=== PATIENT | female | born 1980 | race Caucasian/White ===

== ENCOUNTER 2016-05-03 07:21 | Day surgery (SDC) | payer OTHER ==
[2016-04-20 09:57] LABS: APPEARANCE,URINE SLIGHTLY-CLOUDY; BILIRUBIN,URINE NEGATIVE (NEGATIVE); GLUCOSE, URINE NEGATIVE (NEGATIVE); HEMATOCRIT 36.4 % (36.0-47.0); HEMOGLOBIN 11.4 g/dL (12.0-15.5); HGB HCT DIFFERENCE -2.2; KETONES,URINE NEGATIVE (NEGATIVE); LEUKOCYTE ESTERASE,URINE NEGATIVE (NEGATIVE); MEAN CORPUSCULAR HEMOGLOBIN 24.1 pg (27.0-33.4); MEAN CORPUSCULAR HGB CONC 31.5 g/dL (32.0-36.0); MEAN CORPUSCULAR VOLUME 77 fl (80-97); NITRITE,URINE NEGATIVE (NEGATIVE); PROTEIN,URINE NEGATIVE (NEGATIVE); RED BLOOD COUNT 4.75 10^6/uL (3.72-5.28); RED CELL DISTRIBUTION WIDTH 15.2 % (11.5-14.0); URINE SPECIFIC GRAVITY 1.024; UROBILINOGEN,URINE NEGATIVE mg/dL (<2.0); WHITE BLOOD COUNT 7.3 10^3/uL (4.0-10.5)
[2016-04-20 10:24] LABS: ANION GAP 11 (5-19); BLOOD UREA NITROGEN 12 mg/dL (7-20); CALCIUM 9.6 mg/dL (8.4-10.2); CARBON DIOXIDE 29 mmol/L (22-30); CHLORIDE 101 mmol/L (98-107); CREATININE RESULT 0.75 mg/dL (0.52-1.25); GLUCOSE 80 mg/dL (75-110); POTASSIUM 4.3 mmol/L (3.6-5.0); SODIUM 140.5 mmol/L (137-145)
--- NOTE | 2016-04-20 12:42 | EKG REPORT ---
SEVERITY:- NORMAL ECG - SINUS RHYTHM : Confirmed by: Gely Valenzuela MD 20-Apr-2016 12:41:59
[~2016-05-03 07:21] MED LIST: CEFAZOLIN 2 GM/D5W RTU 2 GM/50 ML RTUPB IV PRN; DEXMEDETOMIDINE INJ 80 MCG/20 ML VIAL IV ONE; EPHEDRINE SULFATE INJ 50 MG/1 ML AMPULE ONE; EPINEPHRINE INJ/PF 1 MG/1 ML AMPULE ONE; FENTANYL CITRATE INJ/PF 250 MCG/5 ML AMPULE ONE; LACTATED RINGERS 1000 ML IV PRN; LIDOCAINE 0.5% INJ-PF (5 MG/ML) 50 ML SDV SUBCUT PRN; MIDAZOLAM 2 MG/2 ML INJ ONE; PROPOFOL INJ 200 MG/20 ML VIAL IV ONE
[2016-05-03] MEDS ORDERED: BUPIVACAINE HCL 0.25 % INJ/PF (2.5 MG/1 ML) 30 ML VIAL ONE (07:36)
[2016-05-03] MEDS ORDERED: OXYCODONE-ACETAMINOPHEN 5-325 MG TABLET PO PRN ×4 (08:38→10:38)
[2016-05-03] MEDS ORDERED: ONDANSETRON HCL INJ/PF 4 MG/2 ML SDV IV PRN (08:38)
[2016-05-03] MEDS ORDERED: DIPHENHYDRAMINE HCL 50 MG/ML VIAL IV PRN (08:38)
[2016-05-03] MEDS ORDERED: MEPERIDINE HCL/PF INJ 25 MG/1 ML DISP.SYRIN IV PRN (08:38)
[2016-05-03] MEDS ORDERED: FENTANYL CITRATE INJ/PF 100 MCG/2 ML AMPUL IV PRN ×3 (08:38)
[2016-05-03] MEDS ORDERED: MORPHINE SULFATE 10 MG/ML INJ IV PRN (08:38)
[2016-05-03] MEDS ORDERED: PROMETHAZINE HCL INJ 25 MG/1 ML VIAL IV PRN ×2 (08:38)
[2016-05-03] MEDS: FENTANYL CITRATE INJ/PF 100 MCG/2 ML AMPUL ONE ×2 (10:35→10:45)
--- NOTE | 2016-05-03 10:36 | Operative Report ---
Operative Report DATE OF SURGERY: 05/03/16 PREOPERATIVE DIAGNOSIS: Right shoulder scapular thoracic bursitis POSTOPERATIVE DIAGNOSIS: Same OPERATION: Right shoulder endoscopic scapular thoracic bursectomy with partial scapula plasty SURGEON: MACIEL PARTIDA ANESTHESIA: GA COMPLICATIONS: None ESTIMATED BLOOD LOSS: 10 mL PROCEDURE: Patient was brought to the operating room and induced and intubated in supine position. Patient was placed then in a prone position with the tube and head secured. Pillows were placed in chest and pelvis and gel pads placed in the knee and an foot. The right scapula and upper back was prepped and draped with the right upper extremity as well. Convexing was used for prepping. Patient received 2 g of Ancef prior to coming into the OR. Once the chlorhexidine dried up after 3 minutes we proceeded then to prep and drape in a normal surgical sterile fashion the right arm and scapular region. A initial portal was established using 11 blade just 3-4 cm medial to the medial border of the scapula. Able to posterior cannula and expose the scapula successfully. A second portal was then more proximal about 3 cm as well medial to the scapula. I used electrocautery and shaver to resect fascial tissue and bursal tissue. I was able to expose the superior border and the medial border of the scapula. I had to do an additional third portal more proximal due to the patient's body habitus and the bottoming out with my instruments. These 2 portals I was able to do a full resection of the bursa and then I used a 5.5mm oval bur to do partial resection of the superior medial aspect of the scapula. Once I was satisfied with the resection then debridement I then proceeded to remove the fluid and close the 3 portal sites with 3-0 nylon. Xeroform 4 x 4 dressing followed by AVD pad were applied and then secured with Medipore tape. Patient sats and not PEEP were unchanged and the whole case showing no evidence of complications or ulceration of the thoracic cavity. Patient was extubated successfully once she was converted back to a supine position. Patient was being on her own strength with no difficulty and was transferred to PACU in stable condition.
--- NOTE | 2016-05-03 10:38 | PDOC DISCHARGE SUMMARY ---
Discharge Summary (SDC) - Discharge Final Diagnosis: Status post Right scapulothoracic bursectomy Date of Surgery: 05/03/16 Discharge Date: 05/03/16 Condition: Good Treatment or Instructions: Patient is instructed to follow up in 10-14 days. Patient instructed to remove dressing in 4 days then can shower and apply Band- Aids as needed. Patient to wear sling for comfort but okay to remove for shower and pendulum exercises. Pendulum exercises are instructed to be done 3 times a day ideally with breakfast, lunch, dinners and showers. Patient instructed to call if there is any signs of redness or drainage fevers or chills. Prescriptions: Oxycodone HCl/Acetaminophen [Percocet 5-325 mg Tablet] 1 - 2 tab PO ASDIR PRN # 40 tablet PRN Reason: Respiratory Treatments at Home: Deep Breathing/Coughing Discharge Activity: No Lifting Over 10 Pounds, Walk Frequently Home Care Assistance: None Needed Report the Following to Your Physician Immediately: Shortness of Breath, Vomiting, Increase in Pain, Fever over 101 Degrees, Unusual Bleeding, Redness, Swelling, Drainage-Yellow, Drainage-Green, Drainage-Foul Smelling
[2016-05-03] MEDS ORDERED: MORPHINE SULFATE 10 MG/ML INJ ONE (10:59)
[2016-05-03] MEDS ORDERED: DEXAMETHASONE SOD PHOSPHATE INJ 4 MG/1 ML VIAL ONE (11:00)
[2016-05-03] MEDS ORDERED: ROCURONIUM BROMIDE INJ 50 MG/5 ML VIAL IV ONE (11:00)
[2016-05-03] MEDS ORDERED: SUCCINYLCHOLINE CHLORIDE INJ 200 MG/10 ML VIAL ONE (11:00)
[2016-05-03] MEDS ORDERED: METOCLOPRAMIDE HCL INJ/PF 10 MG/2 ML SDV ONE (11:00)
[2016-05-03] MEDS ORDERED: ONDANSETRON HCL INJ/PF 4 MG/2 ML SDV ONE (11:00)
[2016-05-03] MEDS ORDERED: LIDOCAINE 2% INJ-PF (20 MG/ML) 10 ML AMPUL ONE (11:00)
[2016-05-03] MEDS ORDERED: CYCLOBENZAPRINE HCL 10 MG TABLET PO ONE (13:15)
[2016-05-03 13:41] VITALS: BP 125/79
== END 2016-05-03 13:35 | disposition home or self-care (01) ==
LOC: OROUT 07:21
PROVIDERS: ATTEND Orthopaedic Surgery
PROC: 0RBJ4ZZ Excision of Right Shoulder Joint, Percutaneous Endoscopic Approach (ICD-10-PCS; principal; 2016-05-03 07:30)
DX: M25.811 Other specified joint disorders, right shoulder (principal); M25.511 Pain in right shoulder; E11.9 Type 2 diabetes mellitus without complications; K21.9 Gastro-esophageal reflux disease without esophagitis; F32.9 Major depressive disorder, single episode, unspecified; E66.01 Morbid (severe) obesity due to excess calories; Z79.84 Long term (current) use of oral hypoglycemic drugs; Z79.899 Other long term (current) drug therapy; Z68.43 Body mass index [BMI] 50.0-59.9, adult
CPT/HCPCS: 29823; 93005; 36415; 85027; 80048; 81001; 83036; 71020; 93010; J2250; J3490 ×3; J1100; J0171; J3010 ×2; J2765; J2270; J0330; J2405; J2704; J0690; 1630